=== PATIENT | male | born 1940 | race Asian ===

== ENCOUNTER 2016-12-25 15:54 | Emergency (ER) | payer OTHER ==
[~2016-12-25] VITALS: Ht 180.3 cm; Wt 70.3 kg
[2016-12-25 18:51] VITALS: BP 160/82
== END 2016-12-25 18:54 | disposition home or self-care (01) ==
LOC: ER 16:12
DX: S09.90XA Unspecified injury of head, initial encounter (principal); E11.9 Type 2 diabetes mellitus without complications; I10 Essential (primary) hypertension; W07.XXXA Fall from chair, initial encounter; Y93.89 Activity, other specified; Y99.9 Unspecified external cause status; Y92.009 Unspecified place in unspecified non-institutional (private) residence as the place of occurrence of the external cause
CPT/HCPCS: 70450; 70480; 93005